=== PATIENT | female | born 1950 ===

== ENCOUNTER → 2020-03-17 | Outpatient (CLI) | payer OTHER ==
[~2020-03-17] VITALS: Ht 160 cm; Wt 67.6 kg
== END | disposition home or self-care (01) ==
LOC: OFIC 805 12:00
DX: H70.11 Chronic mastoiditis, right ear (principal); H61.21 Impacted cerumen, right ear

== ENCOUNTER 2020-06-14 11:47 | Outpatient (CLI) | payer OTHER | END 2020-06-17 16:27 | disposition home or self-care (01) | LOC: OFIC 805 11:47 | PROVIDERS: ATTEND Otolaryngology | DX: H70.11 Chronic mastoiditis, right ear (principal); H61.23 Impacted cerumen, bilateral; H90.11 Conductive hearing loss, unilateral, right ear, with unrestricted hearing on the contralateral side ==

== ENCOUNTER 2020-12-20 11:42 | Outpatient (CLI) | payer OTHER | END 2020-12-20 16:41 | disposition home or self-care (01) | LOC: OFIC 805 11:42 | PROVIDERS: ATTEND Otolaryngology | DX: H93.8X3 Other specified disorders of ear, bilateral (principal); H61.23 Impacted cerumen, bilateral; I72.8 Aneurysm of other specified arteries ==